=== PATIENT | female | born 1955 | race Caucasian/White ===

== ENCOUNTER 2021-10-06 18:15 | Emergency (ER) | payer MEDICARE, SELFPAY ==
[2021-10-06] VITALS (28 sets, daily range): BP systolic 135–167; BP diastolic 69–124; PULSE 43–55; RESP 11–21; TEMP 37.4; O2SAT 94–99
--- NOTE | 2021-10-06 18:00 | RT.EKG_ITS ---
APPROVED REPORT Exam: Resting ECG Reason for Exam: chest pain Patient Location: E HR:50 bpm ECG Measurements Heart Rate 50 AXIS WV 153 P 4 QRSd 121 QRS -46 QT 467 T 16 QTc 426 Conclusion Sinus bradycardia...rate< 60 Left ventricular hypertrophy...multiple LVH criteria sinus bradycardia, left axis, incomplete LBBB, t wave inversion III
--- NOTE | 2021-10-06 18:45 | DI.RAD_ITS ---
Exam(s) XR PORTABLE CHEST AP EXAM: XR PORTABLE CHEST AP CLINICAL HISTORY: chest pain. TECHNIQUE: 2D digital imaging was performed. COMPARISON: Chest x-ray 10/06/2021 FINDINGS: Single AP portable view. Tenting of the right hemidiaphragm is again noted. Heart size is upper normal. The mediastinum is not widened. No new infiltrates nor pleural effusions. No pulmonary edema. IMPRESSION: No acute pulmonary findings on this single AP portable view of the chest. DATA REPOSITORY: RADIATION DOSE DELIVERED: All CT scans at this facility use at least one of these dose optimization techniques: automated exposure control; mA and/or kV adjustment per patient size (includes targeted e xams where dose is matched to clinical indication); or iterative reconstruction.
--- NOTE | 2021-10-06 19:01 | ED.GENADUL_ITS ---
Discharge Plan Disposition Patient Disposition: [facility] Condition: Improving Discharge Details Chief Complaint: Chest Pain Clinical Impression: Chest pain Primary Care Provider: Unknown,Unknown ED Provider: Chacorta Willard Home Meds and New Rx's Prescriptions: No Action atenolol 100 mg Tablet 100 mg PO DAILY Discharge Instructions Instructions: Chest Pain (ED) Additional Instructions: Please follow-up with cardiology Medical Decision Making 66-year-old female presents with intermittent chest pain for the past several hours, triggered by psychosocial stressors including family argument family issues and current incarceration, denies history of coronary disease stenting or prior surgery denies history of thromboembolic phenomena, no coughing or shortness of breath no peripheral edema. Resting comfortably chest pain-free at this time, sinus bradycardia with biphasic T wave in lead III, consider bradycardia related to atenolol use. No distress at this time. Given aspirin before arrival. Consider anxiety versus musculoskeletal versus ACS versus less likely PE versus unlikely aortic pathology or infectious etiology. Screening labs chest x-ray close reassessment of symptoms. Likely discharge with cardiology follow-up. 20: 30 patient resting comfortably no acute distress. EKG nonischemic. X-ray clear. Hemodynamically stable. Persistently bradycardic however patient is on atenolol. Given strict return precautions. Will be given cardiology referral. HPI General Date/Time Provider Initiated Documentation: 10/06/21 18:53 . HPI Narrative: 66-year-old female presents with intermittent anterior chest pain in the setting of stress, psychosocial stressors include family issues and current incarceration, denies history of coronary artery disease, denies history of thromboembolic phenomena, is on atenolol. Was given aspirin before arrival. Resting comfortably denies any current discomfort or shortness of breath. Related Data Home Medications Medication Instructions Recorded Confirmed atenolol 100 mg tablet 100 mg PO DAILY 10/06/21 10/06/21 Allergies Allergy/AdvReac Type Severity Reaction Status Date / Time No Known Allergies Allergy Unverified 10/06/21 18:22 General Stated Complaint: Chest Pain TIA: 3 Review of Systems Narrative: Review of Systems Constitutional: negative Eyes: negative ENT: negative Cardiovascular: Chest pain Respiratory: negative Gastrointestinal: negative : negative Musculoskeletal: negative Skin: negative Neurologic: negative Psych: negative PFSH All Active Problems (Updated 10/06/21 @ 20:33 by Chacorta Willard MD) Chest pain (Acute) Social History Smoking/Tobacco Use Status: Never Smoking risk assessment performed?: Yes Alcohol Intake: former Drug use: Never Substance use type: does not use Exam Narrative Exam Narrative: Physical Examination General: alert, awake, cooperative, resting comfortably, no acute distress HEENT: normocephalic, atraumatic; PERRL, EOM intact, conjunctiva normal; no nasal discharge; moist mucous membranes, oral and pharyngeal mucosa normal, tolerating secretions Neck: supple, trachea midline; full ROM Chest: normal to inspection Respiratory: normal respiratory effort, speaking in full sentences, clear to auscultation, no wheezing, rales or rhonchi Cardiac: regular rate, regular rhythm, S1S2 intact, no murmurs rubs or gallops GI: abdomen soft, non-tender, non-distended; no palpable mass or hepatosplenomegaly Skin: no lesions, rashes or trauma appreciated Neuro: AAOx3, normal speech, moving all extremities Extremities: no peripheral edema Psych: Appropriate mood and affect Course Vital Signs Vital signs: Vital Signs Temperature 37.4 C 10/06/21 18:15 Pulse 52 L 10/06/21 18:15 Respiratory Rate 14 10/06/21 18:15 Blood Pressure 144/109 H 10/06/21 18:15 Pulse Oximetry 97 10/06/21 18:15 Temperature 37.4 C 10/06/21 18:15 Temperature Source Temporal Artery Scan 10/06/21 18:15 Pulse 52 L 10/06/21 18:15 Respiratory Rate 14 10/06/21 18:15 Respiratory Effort 10/06/21 18:22 Blood Pressure 144/109 H 10/06/21 18:15 Blood Pressure Position Sitting 10/06/21 18:15 Pulse Oximetry 97 10/06/21 18:15 Oxygen Delivery Method Room Air 10/06/21 18:15 Oxygen Flow Rate 0 10/06/21 18:15 Pain Level 6 10/06/21 18:15
[2021-10-06 19:40] LABS: Abs Immature Grans 0.02 10^3/uL (0.0-0.06); Absolute Basophil Count 0.03 10^3/uL (0.0-0.2); Absolute Lymphocyte Count 1.85 10^3/uL (1.2-3.4); Absolute Monocyte Count 0.46 10^3/uL (0.1-0.8); Absolute Neutrophil Count 4.74 10^3/uL (1.2-6.7); Basophils % 0.4; Eosinophils % 1.4; HCT 37.2 % (36.0-46.0); HGB 11.6 g/dL (11.2-15.7); Immature Grans % 0.3; Lymphocytes % 25.7; MCH 20.8 pg (27.0-33.0); MCHC 31.2 % (32.0-36.0); MCV 67 fL (80-95); Monocytes % 6.4; Neutrophils % 65.8; Platelet Count 165 10^3/uL (130-400); RBC 5.59 10^6/uL (3.93-5.22); RDW 16.7 % (11.7-14.6); RDW-SD 38.4 fL
[2021-10-06 19:58] LABS: ALT 21 U/L (14-59); AST 19 U/L (15-37); Albumin 3.7 g/dL (3.4-5.0); Alkaline Phosphatase 51 U/L (46-116); Anion Gap 7.3 mmol/L (3-11); BUN 27 mg/dL (7-18); Bilirubin, Total 0.5 mg/dL (0.2-1.0); CO2 28.7 mmol/L (21.0-32.0); CREATININE 0.8 mg/dL (0.55-1.02); Calcium 9.2 mg/dL (8.5-10.1); Chloride 103 mmol/L (98-107); Glucose 95 mg/dL (74-106); Potassium 4.1 mmol/L (3.5-5.1); Sodium 139 mmol/L (136-145); Total Protein 7.3 g/dL (6.4-8.2); Troponin I < 50 ng/L (<or=60)
--- NOTE | 2021-10-06 20:07 | DI.VRAD_ITS ---
PROCEDURE INFORMATION: Exam: XR Chest Exam date and time: 10/06/2021 7:26 PM Age: 66 years old Clinical indication: Other: Chest pain TECHNIQUE: Imaging protocol: Radiologic exam of the chest. Views: 1 view. COMPARISON: No relevant prior studies available. FINDINGS: Lungs: Lungs are adequately inflated. No focal consolidation or pulmonary edema. There is coarsening of the perihilar interstitial markings, chronic appearing finding. Pleural spaces: No visible pleural effusion. No pneumothorax. Heart/Mediastinum: Cardiomediastinal contours within normal limits. Diaphragm: Asymmetric elevation of the right hemidiaphragm. Bones/joints: Mild S-shaped curvature of the thoracolumbar spine, correlate with physical exam for clinical significance. Multilevel thoracic spondylosis. No acute osseous finding. Organs: Cholecystectomy clips are in place. IMPRESSION: No focal consolidation. Dictated and Authenticated by: Randy Martinez MD. Ordering:[id number] Whatley MD
[2021-10-06 20:15] LABS: Anisocytosis 1+; Basophilic Stippling 1+; Diff Comment RBC Morph Reviewed; Hypochromasia 1+; Microcytosis 2+; Poikilocytes 1+
--- NOTE | 2021-10-14 15:21 | CMACTNOTE_ITS ---
- If Service Date Differs Date of service: 10/14/21 Time of Service: 15:21 Care Management Activity Note Anabell is seen in the ED on 10/06/21 for chest pain. On , receives a request to arrange follow up for Anabell with the custodial medical physician. Anabell, however, was discharged from the [facility] back to the community on 10/07/21. CM telephones the phone number on file for Anabell ([phone]) and gets a voicemail message. CM leaves a message asking that Anabell return the call.
== END 2021-10-06 20:42 | disposition home or self-care (01) ==
PROVIDERS: Emergency Provider Emergency Medicine
DX: R07.89 Other chest pain (principal); R00.1 Bradycardia, unspecified
CPT/HCPCS: 80053; 93005; 99283; 71045; 84484; 85025; 93010; 99285